=== PATIENT | female | born 1990 | race Caucasian/White ===

== ENCOUNTER 2018-03-28 22:06 | Observation (INO) ==
[2018-03-28] MEDS ORDERED: Vancomycin Inj 1,000 MG in Sodium Chlor 0.9% Inj 250 ML IV.SIG ONE (22:31)
--- NOTE | 2018-03-28 22:35 | ED ---
HPI General Chief Complaint: Skin/Abscess/Foreign Body Stated Complaint: Med clear,DBPD Time Seen by Provider: 03/28/18 22:31 Source: patient and police Mode of arrival: ambulatory Limitations: no limitations History of Present Illness HPI narrative: 27-year-old female patient with history of IV drug use presents to the ER today because she is under police custody, complaining of left arm pain, has a large ulcerated area on the left arm that has been developing over last few days, she states that it had drained some pus before as well. She denies any fevers or other issues. Related Data Home Medications Medication Instructions Recorded Confirmed No Known Home Medications 03/28/18 03/28/18 Allergies Allergy/AdvReac Type Severity Reaction Status Date / Time No Known Allergies Allergy Verified 03/28/18 22:31 Review of Systems ROS: all other systems reviewed are negative PMFSH History History Provided By: Patient Medical History Medical History IVDU (intravenous drug user) (Acute) Surgical History Surgical History History of surgery on arm (Acute) Social History Social History Substance History: Active Abuse Smoking Status: Current every day smoker Tobacco Type: Cigarettes How Often Do You Have a Drink Containing Alcohol: Never Recent Travel in [place] within the Last 8 Weeks: No Recent Out of Country Travel within the Last 8 Weeks: No Exam Narrative Exam Narrative: GENERAL: Well-developed young female patient currently in moderate distress. Awake and oriented x3. SKIN: Focused skin assessment warm/dry. HEAD: Atraumatic. Normocephalic. EYES: Pupils equal and round. No scleral icterus. No injection or drainage. ENT: No nasal bleeding or discharge. Mucous membranes pink and moist. NECK: Trachea midline. No JVD. CARDIOVASCULAR: Regular rate and rhythm. No murmur appreciated. RESPIRATORY: No accessory muscle use. Clear to auscultation. Breath sounds equal bilaterally. GASTROINTESTINAL: Abdomen soft, non-tender, nondistended. Hepatic and splenic margins not palpable. MUSCULOSKELETAL: No obvious deformities. No clubbing. No cyanosis. No edema. There is a 5 cm circular ulcer to the left medial arm with surrounding induration, edema, tender to palpation. NEUROLOGICAL: Awake and alert. No obvious cranial nerve deficits. Motor grossly within normal limits. Normal speech. PSYCHIATRIC: Appropriate mood and affect; insight and judgment normal. Course Initial Documented Vital Signs Temperature 99.0 F 03/28/18 22:31 Pulse Rate 99 H 03/28/18 22:31 Respiratory Rate 16 03/28/18 22:31 Blood Pressure 122/77 03/28/18 22:31 Pulse Oximetry 96 03/28/18 22:31 Last Documented Vital Signs Temperature 99.0 F 03/28/18 22:31 Pulse Rate 99 H 03/28/18 22:31 Respiratory Rate 16 03/28/18 22:41 Blood Pressure 122/77 03/28/18 22:31 Pulse Oximetry 99 03/28/18 22:41 Medical Decision Making MDM Narrative Medical decision making narrative: She has a significant of an ulcer with no underlying abscess on ultrasound evaluation IV antibiotics were initiated after cultures have been drawn. Lab work shows leukocytosis. At this point, my plan would be to admit her for further treatment and wound care. Case is discussed with Dr. Harris for admission. Medical Screen Exam Complete: Yes Emergency Medical Condition: Yes Differential Diagnosis Differential Diagnosis: Cellulitis versus sepsis versus abscess Lab Data Lab results reviewed: Yes I reviewed the patient's lab results. Result diagrams: 03/28/18 22:50 03/28/18 22:50 Lab Results 03/28/18 03/28/18 03/28/18 Range/Units 22:50 22:50 22:50 WBC 13.1 H (4.0-11.0) th/mm3 RBC 3.73 L (4.00-5.30) mil/mm3 Hgb 10.6 L (11.6-15.3) gm/dL Hct 31.2 L (35.0-46.0) % MCV 83.5 (80.0-100.0) fL MCH 28.3 (27.0-34.0) pg MCHC 33.9 (32.0-36.0) % RDW 17.1 (11.6-17.2) % Plt Count 755 H (150-450) th/mm3 MPV 6.4 L (7.0-11.0) fL Neut % (Auto) 66.4 (16.0-70.0) % Lymph % (Auto) 25.4 (9.0-44.0) % [place] % (Auto) 5.9 (0.0-8.0) % Eos % (Auto) 1.0 (0.0-4.0) % Baso % (Auto) 1.3 (0.0-2.0) % Neut # (Auto) 8.7 H (1.8-7.7) th/mm3 Lymph # (Auto) 3.3 (1.0-4.8) th/mm3 [place] # (Auto) 0.8 (0.0-0.9) th/mm3 Eos # (Auto) 0.1 (0.0-0.4) th/mm3 Baso # (Auto) 0.2 (0.0-0.2) th/mm3 WBC Differential . Differential Comment Auto diff final Sodium 141 (136-145) meq/L Potassium 3.3 L (3.5-5.1) meq/L Chloride 103 (98-107) meq/L Carbon Dioxide 30.6 (21.0-32.0) meq/L Anion Gap 7 (5-15) meq/L BUN 7 (7-18) mg/dL Creatinine 0.59 (0.50-1.00) mg/dL Estimated GFR Greater than 89 (>89) mL/min Random Glucose 112 H (74-106) mg/dL Lactic Acid 1.4 (0.4-2.0) mmol/L Calcium 8.5 (8.5-10.1) mg/dL Magnesium 2.3 (1.5-2.5) mg/dL Total Bilirubin 0.1 L (0.2-1.0) mg/dL AST 8 L (15-37) U/L ALT 20 (10-53) U/L Alkaline Phosphatase 137 H (45-117) U/L Total Protein 8.4 H (6.4-8.2) g/dL Albumin 2.7 L (3.4-5.0) g/dL Imaging Data Attestation: I personally reviewed and interpreted this imaging study as follows : Radiologist's impression: Soft Tissue Ultrasound 03/28/18 22:35 CONCLUSION: 1. No abscess or fluid collection. Discharge Plan Discharge Disposition Patient Disposition: 30 Still Patient Discharge Condition Condition: Stable Discharge Details Anticipated Discharge Date: 03/28/18 Diagnosis: Cellulitis of arm, Arm ulcer Physicians Team ED Provider: Anselmo Spencer Primary Care Provider: Primary Care AllisoniRina Rxs /Orders / Referrals /Forms Prescriptions: No Action No Known Home Medications RF: 0 Status ED Status: With Doctor
[2018-03-28] MEDS ORDERED: Sod Chloride 0.9% Inj 1,000 ML IV.SIG SCH (22:45)
[2018-03-28 23:08] LABS: Baso # (Auto) 0.2 th/mm3 (0.0-0.2); Baso % (Auto) 1.3 % (0.0-2.0); Eos # (Auto) 0.1 th/mm3 (0.0-0.4); Hematocrit 31.2 % (35.0-46.0); Hemoglobin 10.6 gm/dL (11.6-15.3); Lymph # (Auto) 3.3 th/mm3 (1.0-4.8); Lymph % (Auto) 25.4 % (9.0-44.0); Mean Corpuscular HGB Conc 33.9 % (32.0-36.0); Mean Corpuscular Hemoglobin 28.3 pg (27.0-34.0); Mean Corpuscular Volume 83.5 fL (80.0-100.0); Mean Platelet Volume 6.4 fL (7.0-11.0); Mono # (Auto) 0.8 th/mm3 (0.0-0.9); Mono % (Auto) 5.9 % (0.0-8.0); Neut # (Auto) 8.7 th/mm3 (1.8-7.7); Neut % (Auto) 66.4 % (16.0-70.0); Platelet Count 755 th/mm3 (150-450); Red Blood Count 3.73 mil/mm3 (4.00-5.30); Red Cell Distribution Width 17.1 % (11.6-17.2); White Blood Count 13.1 th/mm3 (4.0-11.0)
--- NOTE | 2018-03-28 23:12 | US ---
EXAM DATE: 03/28/2018 10:55 PM EST AGE/SEX: 27 years / Female INDICATIONS: Abscess. CLINICAL DATA: This is the patient's initial encounter. Patient reports that signs and symptoms have been present for 1 week and indicates a pain score of 8/10. MEDICAL/SURGICAL HISTORY: . IV drug user. . Right arm surgery. COMPARISON: No prior exams available for comparison. FINDINGS: Sonographic evaluation of the area of concern involving the left upper arm medially shows no abscess or fluid collection. CONCLUSION: 1. No abscess or fluid collection. Electronically signed by: James Nichole MD 03/28/2018 11:10 PM EST
[2018-03-28 23:32] LABS: Alanine Aminotransferase 20 U/L (10-53); Albumin 2.7 g/dL (3.4-5.0); Anion Gap 7 meq/L (5-15); Aspartate Aminotransferase 8 U/L (15-37); Blood Urea Nitrogen 7 mg/dL (7-18); Calcium 8.5 mg/dL (8.5-10.1); Carbon Dioxide 30.6 meq/L (21.0-32.0); Chloride 103 meq/L (98-107); Glomerular Filtration Rate Greater Than 89 mL/min (>89); Glucose,Random 112 mg/dL (74-106); Magnesium 2.3 mg/dL (1.5-2.5); Potassium 3.3 meq/L (3.5-5.1); Sodium 141 meq/L (136-145)
[2018-03-28 23:35] LABS: Alkaline Phosphatase 137 U/L (45-117); Total Protein 8.4 g/dL (6.4-8.2)
[2018-03-28] MEDS ORDERED: Acetaminophen 325 MG Tablet PO PRN (23:51)
[2018-03-28] MEDS ORDERED: Bisacodyl 10 MG Supp RECTAL PRN (23:51)
[2018-03-28] MEDS ORDERED: Vancomycin Consult Pharmacy OTHER PRN (23:51)
[2018-03-29] MEDS: Sod Chloride 0.9% Inj 1,000 ML IV.CONT SCH ×3 (01:21→21:51)
[2018-03-29] MEDS ORDERED: Vancomycin Inj 500 MG in Sodium Chlor 0.9% Inj 100 ML IV.SIG ONE (02:00)
--- NOTE | 2018-03-29 02:39 | P.HPIM ---
History of Present Illness Primary Care Physician: No Primary Care Physician History of Present Illness: This is a 27-year-old female with a PMH of IVDU who is brought to the ER under Police custody for complaints of left arm pain. Pt reports worsening pain/ swelling to left biceps for approx 4 days. Denies injecting into that site. No reported fever/chills. On arrival, BP 122/77, HR 99, O2 sat 96% on RA, Temp 99.0. WBC 13.1. Chemistry essentially unremarkable. LUE Ultrasound no evidence of abscess or fluid collection. On exam, pt w/ large area of ulceration and induration to left biceps, s/p Vanc in ER. - Diagnosis (1) Cellulitis (2) IVDU (intravenous drug user) Review of Systems PAST FAMILY HISTORY: Reviewed. No h/o DM or CAD All other systems reviewed negative except as stated in HPI [facility] - History History Provided By: Patient - Medical History Medical History: Medical History (Last Reviewed 03/28/18 @ 22:36 by Cynthia Ha) IVDU (intravenous drug user) - Surgical History Surgical History: Surgical History (Last Updated 03/28/18 @ 22:36 by Cynthia Ha) History of surgery on arm - Tobacco History Second Hand Smoke Exposure: Yes Tobacco Use In Past 30 Days: Yes Smoking Status: Current every day smoker Tobacco Type: Cigarettes - Alcohol History How Often Do You Have a Drink Containing Alcohol: 4 or more times a week - Substance Use History Substance History: Active Abuse - Substance Use Type Heroin Status: Active Route Used: Intravenously Reason for Use: Get High - Travel History Recent Travel in the [place] Within the Last 8 Weeks: No Recent Travel Out of the Country Within the Last 8 Weeks: No - Immunization History Tetanus Immunization: Unsure Medications and Allergies Active Medications: Active Medications Acetaminophen (Tylenol) 650 mg PO Q4H PRN PRN Reason: Temp > 100.4 Al Hydroxide/Mg Hydroxide (Milk Of Magnesia Liq) 30 ml PO Q12H PRN PRN Reason: Mild Constipation Bisacodyl (Dulcolax Supp) 10 mg RECTAL DAILY PRN PRN Reason: SEVERE CONSITIPATION Cefepime HCl 1,000 mg/ Sodium (Chloride) 100 mls @ 200 mls/hr IV.SIG Q12H [facility] Last Infusion: 03/29/18 02:13 Dose: Infused Sodium Chloride (Ns Inj) 1,000 mls @ 100 mls/hr IV.CONT .Q10H [facility] Last Admin: 03/29/18 01:21 Dose: 100 mls/hr Lactulose (Lactulose Liq) 30 ml PO DAILY PRN PRN Reason: SEVERE CONSITIPATION Ondansetron HCl (Zofran Inj) 4 mg IV.PUSH Q6H PRN PRN Reason: NAUSEA OR VOMITING Pharmacy Profile Note (Vancomycin Consult Pharmacy) 1 each OTHER UNSCH PRN PRN Reason: Pharmacy to dose Senna/Docusate Sodium (Dinah-Colace) 1 tab PO BID [facility] Sennosides (Senokot) 17.2 mg PO Q12H PRN PRN Reason: Moderate Constipation Allergies Allergy/AdvReac Type Severity Reaction Status Date / Time No Known Allergies Allergy Verified 03/28/18 22:31 Home Medications Medication Instructions Recorded Confirmed Type No Known Home Medications 03/28/18 03/28/18 History Exam Vital signs: Vital Signs 03/28/18 22:31 03/28/18 22:41 03/29/18 00:00 Temperature 99.0 F 97.9 F Pulse Rate 99 H 83 Respiratory Rate 16 16 18 Blood Pressure 122/77 116/70 Pulse Oximetry 96 99 97 03/29/18 01:51 Temperature Pulse Rate Respiratory Rate 16 Blood Pressure Pulse Oximetry Intake & Output 03/28/18 03/28/18 03/29/18 06:59 18:59 06:59 Intake Total 350 / 350 Balance 350 / 350 Weight 56.699 kg Intake: IV 350 / 350 Maxipime Inj 1,000 MG In NS Inj 100 / 100 100 ML @ 200 mls/hr IV.SIG Q12H [facility] Rx#:[id number] NS Inj 1,000 ML @ 1000 mls/hr 0 / 0 IV.SIG BOLUS [facility] Rx#:[id number] Vancomycin Inj 1,000 MG In NS 250 / 250 Inj 250 ML @ 250 mls/hr IV.SIG ONCE ONE Rx#:[id number] Narrative: PE: GENERAL: Young white female in no acute distress. SKIN: Focused skin assessment warm and dry. HEENT: PERRLA, EOMI. No scleral icterus or conjunctival pallor. No lid lag or facial droop. CARDIOVASCULAR: Regular rate and rhythm. No obvious murmurs to auscultation. No chest tenderness to palpation. RESPIRATORY: No obvious rhonchi or wheezing. Clear to auscultation. Breath sounds equal bilaterally. GASTROINTESTINAL: Abdomen soft, non-tender, nondistended. BS normal. MUSCULOSKELETAL: Extremities without clubbing, cyanosis, or edema. No obvious deformities. LUE w/ large ulcer to medial biceps, +surrounding erythema/ induration. NEUROLOGICAL: Awake, alert and oriented x4. No focal neurologic deficits. Moving both upper and lower extremities spontaneously. PSYCHIATRIC: Appropriate mood and affect. Insight and judgment normal. Results - Labs CBC & Chem 7: 03/28/18 22:50 03/28/18 22:50 Labs: Short CBC 03/28/18 Range/Units 22:50 WBC 13.1 H (4.0-11.0) th/mm3 Hgb 10.6 L (11.6-15.3) gm/dL Hct 31.2 L (35.0-46.0) % Plt Count 755 H (150-450) th/mm3 BMP 03/28/18 22:50 Sodium 141 Potassium 3.3 L Chloride 103 Carbon Dioxide 30.6 BUN 7 Creatinine 0.59 Calcium 8.5 Liver Function 03/28/18 Range/Units 22:50 Total Bilirubin 0.1 L (0.2-1.0) mg/dL AST 8 L (15-37) U/L ALT 20 (10-53) U/L Alkaline Phosphatase 137 H (45-117) U/L Albumin 2.7 L (3.4-5.0) g/dL - Imaging Impressions Soft Tissue Ultrasound 03/28/18 22:35 CONCLUSION: 1. No abscess or fluid collection. Caprini VTE Risk Assessment Caprini VTE Risk Assessment: No/Low Risk (score <= 1) Caprini Risk Assessment Model: Point Value = 1 Point Value = 2 Point Value = 3 Point Value = 5 Age 41-60 Minor surgery BMI > 25 kg/m2 Swollen legs Varicose veins or History of unexplained or recurrent spontaneous Oral contraceptives or hormone replacement Sepsis (< 1 month) Serious lung disease, including pneumonia (< 1 month) Abnormal pulmonary function Acute myocardial infarction Congestive heart failure (< 1 month) History of inflammatory bowel disease Medical patient at bed rest Age 61-74 Arthroscopic surgery Major open surgery (> 45 min) Laparoscopic surgery (> 45 min) Malignancy Confined to bed (> 72 hours) Immobilizing plaster cast Central venous access Age >= 75 History of VTE Family history of VTE Factor V Leiden Prothrombin [id number] Lupus anticoagulant Anticardiolipin antibodies Elevated serum homocysteine Heparin-induced thrombocytopenia Other congenital or acquired thrombophilia Stroke (< 1 month) Elective arthroplasty Hip, pelvis, or leg fracture Acute spinal cord injury (< 1 month) Prophylaxis Regimen: Total Risk Factor Score Risk Level Prophylaxis Regimen 0-1 Low Early ambulation 2 Moderate Order ONE of the following: *Sequential Compression Device (SCD) *Heparin 5000 units SQ BID 3-4 Higher Order ONE of the following medications: *Heparin 5000 units SQ TID *Enoxaparin/Lovenox 40 mg SQ daily (WT < 150 kg, CrCl > 30 mL/min) *Enoxaparin/Lovenox 30 mg SQ daily (WT < 150 kg, CrCl > 10-29 mL/min) *Enoxaparin/Lovenox 30 mg SQ BID (WT < 150 kg, CrCl > 30 mL/min) AND/OR *Sequential Compression Device (SCD) 5 or more Highest Order ONE of the following medications: *Heparin 5000 units SQ TID (Preferred with Epidurals) *Enoxaparin/Lovenox 40 mg SQ daily (WT < 150 kg, CrCl > 30 mL/min) *Enoxaparin/Lovenox 30 mg SQ daily (WT < 150 kg, CrCl > 10-29 mL/min) *Enoxaparin/Lovenox 30 mg SQ BID (WT < 150 kg, CrCl > 30 mL/min) AND *Sequential Compression Device (SCD) Assessment and Plan - Assessment (1) Cellulitis Code(s): L03.90 - Cellulitis, unspecified Status: Acute (2) IVDU (intravenous drug user) Code(s): F19.90 - Other psychoactive substance use, unspecified, uncomplicated Status: Acute - Plan A/P: 1. Cellulitis: LUE w/ ulcer, likely from IVDU however denies injecting that site. LUE Doppler negative for abscess/fluid collection, however on exam large area of ulcer w/ surrounding erythema/edema. S/p Vanc, will continue w/ Vanc, add Cefepime, follow up cultures, Wound Consult, Gen Sx eval if no improvement. 2. IVDU: Pt counselled. Ativan prn if needed for withdrawal 3. DVT Prophylaxis: SCD/Teds 4. Social work for d/c planning as needed. 5. Case discussed w/ ER physician at length, labs/records/imaging reviewed by me. H&P: Quality - VTE Deep Vein Thrombosis/Pulmonary Embolism Present on Admission: No
[2018-03-29] MEDS: Senna/Docusate Sodium 8.6/50 MG Tablet PO SCH ×2 (09:18→20:27)
[2018-03-29] MEDS ORDERED: Ibuprofen 600 MG Tablet PO PRN (10:10)
[2018-03-29 10:37] LABS: Baso # (Auto) 0.2 th/mm3 (0.0-0.2); Baso % (Auto) 1.2 % (0.0-2.0); Eos # (Auto) 0.1 th/mm3 (0.0-0.4); Eos % (Auto) 0.5 % (0.0-4.0); Hematocrit 33.7 % (35.0-46.0); Hemoglobin 10.9 gm/dL (11.6-15.3); Lymph # (Auto) 2.2 th/mm3 (1.0-4.8); Mean Corpuscular HGB Conc 32.4 % (32.0-36.0); Mean Corpuscular Hemoglobin 28.4 pg (27.0-34.0); Mean Corpuscular Volume 87.6 fL (80.0-100.0); Mean Platelet Volume 6.3 fL (7.0-11.0); Mono # (Auto) 0.6 th/mm3 (0.0-0.9); Mono % (Auto) 4.3 % (0.0-8.0); Platelet Count 734 th/mm3 (150-450); Red Blood Count 3.84 mil/mm3 (4.00-5.30); Red Cell Distribution Width 17.4 % (11.6-17.2)
[2018-03-29 11:02] LABS: Albumin 2.3 g/dL (3.4-5.0); Anion Gap 9 meq/L (5-15); Aspartate Aminotransferase 9 U/L (15-37); Blood Urea Nitrogen 6 mg/dL (7-18); Calcium 8.2 mg/dL (8.5-10.1); Carbon Dioxide 27.5 meq/L (21.0-32.0); Chloride 106 meq/L (98-107); Glomerular Filtration Rate Greater Than 89 mL/min (>89); Potassium 3.2 meq/L (3.5-5.1); Sodium 142 meq/L (136-145)
[2018-03-29 11:03] LABS: Alanine Aminotransferase 14 U/L (10-53); Glucose,Random 109 mg/dL (74-106)
[2018-03-29 11:05] LABS: Alkaline Phosphatase 108 U/L (45-117); Total Protein 7.5 g/dL (6.4-8.2)
[2018-03-29 11:06] LABS: Platelet Morphology Normal (Normal); RBC Morphology Normal (Normal)
[2018-03-29] MEDS: Vancomycin Inj 1,000 MG in Sodium Chlor 0.9% Inj 250 ML IV.SIG SCH (11:40)
[2018-03-30] MEDS: Vancomycin Inj 1,000 MG in Sodium Chlor 0.9% Inj 250 ML IV.SIG SCH (01:55)
[2018-03-30] MEDS: Sod Chloride 0.9% Inj 1,000 ML IV.CONT SCH (07:53)
[2018-03-30 08:33] VITALS: BP 112/79; PULSE 77; RESP 20; TEMP 98; O2SAT 100
--- NOTE | 2018-03-30 08:46 | P.PNIM ---
Subjective Interval history: Patient reports she is feeling okay today. No fevers or chills. Physical Exam Vital signs: Vital Signs 03/29/18 12:00 03/29/18 16:00 03/29/18 20:00 Temperature 98.3 F 97.7 F 98.2 F Pulse Rate 72 90 96 H Respiratory Rate 16 16 18 Blood Pressure 124/93 H 129/83 135/94 H Pulse Oximetry 98 99 100 03/30/18 00:00 03/30/18 03:31 03/30/18 08:00 Temperature 98.2 F 98.2 F 98 F Pulse Rate 92 H 76 77 Respiratory Rate 18 16 20 Blood Pressure 119/82 152/94 H 112/79 Pulse Oximetry 100 95 100 Intake & Output 03/29/18 03/30/18 03/30/18 18:59 06:59 18:59 Intake Total 350 / 350 1350 / 1350 800 / 800 Balance 350 / 350 1350 / 1350 800 / 800 Intake: IV 350 / 350 1350 / 1350 800 / 800 NS Inj 1,000 ML @ 100 mls/hr IV 0 / 0 1000 / 1000 800 / 800 .CONT .Q10H [facility] Rx#:[id number] Maxipime Inj 1,000 MG In NS Inj 100 / 100 100 / 100 100 ML @ 200 mls/hr IV.SIG Q12H [facility] Rx#:[id number] Vancomycin Inj 1,000 MG In NS 250 / 250 250 / 250 Inj 250 ML @ 250 mls/hr IV.SIG Q12H [facility] Rx#:[id number] Other: # Voids 4 0 Date of Last Bowel Movement 03/27/18 03/27/18 Narrative: GENERAL: Young white female in no acute distress. CARDIOVASCULAR: Regular rate and rhythm. No obvious murmurs to auscultation. RESPIRATORY: No obvious rhonchi or wheezing. Clear to auscultation. Breath sounds equal bilaterally. MUSCULOSKELETAL: Left upper extremity has a quarter size ulcer with improving surrounding erythema. Scant drainage. Results - Labs CBC & Chem 7: 03/29/18 10:20 03/29/18 10:20 Laboratory Results - last 24 hr 03/29/18 03/29/18 03/29/18 10:20 10:20 10:20 WBC 13.0 H RBC 3.84 L Hgb 10.9 L Hct 33.7 L MCV 87.6 D MCH 28.4 MCHC 32.4 RDW 17.4 H Plt Count 734 H MPV 6.3 L Prelim Diff (Auto) Slide review pending Neut % (Auto) 77.0 H Lymph % (Auto) 17.0 [place] % (Auto) 4.3 Eos % (Auto) 0.5 Baso % (Auto) 1.2 Neut # (Auto) 10.0 H Lymph # (Auto) 2.2 [place] # (Auto) 0.6 Eos # (Auto) 0.1 Baso # (Auto) 0.2 WBC Differential . Diff Scan Auto diff confirmed Differential Comment . Platelet Estimate High H Platelet Morphology Normal RBC Morphology Normal Sodium 142 Potassium 3.2 L Chloride 106 Carbon Dioxide 27.5 Anion Gap 9 BUN 6 L Creatinine 0.58 Estimated GFR Greater than 89 Random Glucose 109 H Calcium 8.2 L Total Bilirubin 0.2 AST 9 L ALT 14 Alkaline Phosphatase 108 Total Protein 7.5 D Albumin 2.3 L Beta HCG, Qual Less than 1.0 Microbiology 03/28/18 22:50 Blood - Peripheral Aerobic Blood Culture - Preliminary No growth in 1 day 03/28/18 22:50 Blood - Peripheral Anaerobic Blood Culture - Preliminary No growth in 1 day 03/28/18 22:45 Blood - Peripheral Aerobic Blood Culture - Preliminary No growth in 1 day 03/28/18 22:45 Blood - Peripheral Anaerobic Blood Culture - Preliminary No growth in 1 day Assessment and Plan - Assessment (1) Cellulitis Code(s): L03.90 - Cellulitis, unspecified Status: Acute (2) IVDU (intravenous drug user) Code(s): F19.90 - Other psychoactive substance use, unspecified, uncomplicated Status: Acute - Plan 27-year-old female history of IV drug use admitted with left upper extremity ulcer/cellulitis: 1. Ulcer/cellulitis: LUE w/ ulcer, likely from IVDU however denies injecting that site. LUE Doppler negative for abscess/fluid collection. Patient received broad-spectrum IV antibiotics. Blood cultures at 48 hours negative. Seems to be a local infection. She will continue with wound care. She is discharged on Bactrim to complete the course of treatment. 2. IVDU: Pt counselled at length. No evidence of withdrawals. Discharge Planning: Discharge patient to home Condition on discharge: Improved Regular Diet as tolerated Ad Elizabeth activity Rx written: Per med rec. Follow-up with primary care physician
[2018-03-30] MEDS: Senna/Docusate Sodium 8.6/50 MG Tablet PO SCH (09:25)
[2018-03-30] MEDS ORDERED: Pharmacy Ordered Lab Info OTHER ONE (11:45)
== END 2018-03-30 09:56 | disposition home or self-care (01) ==
LOC: NEDA 22:06 → NEPD 22:06 → NEPFCDU 03-29 01:14
PROVIDERS: ADMIT Family Medicine; ATTEND Family Medicine